=== PATIENT | male | born 1985 | race African-American/Black ===

== ENCOUNTER 2024-12-20 22:35 | Emergency (ER) | payer OTHER ==
[~2024-12-20] VITALS: Ht 167.6 cm; Wt 59.1 kg
[2024-12-20 22:47] VITALS: BP 96/60; PULSE 105; RESP 16; TEMP 98.6; O2SAT 99
[2024-12-20 23:03] LABS: COVID AG,FIA SOURCE NASAL SWAB
[2024-12-20 23:12] LABS: INFLUENZA TYPE A NEGATIVE FOR TYPE A (NEGATIVE); INFLUENZA TYPE B NEGATIVE FOR TYPE B (NEGATIVE)
[2024-12-20 23:15] LABS: SARS-COV2 (COVID) ANTIGEN,FIA Positive (Negative)
[2024-12-21] MEDS ORDERED: IBUP-1492 PO (00:18)
[2024-12-21] MEDS ORDERED: ACET-2247 PO (00:18)
[2024-12-21] MEDS ORDERED: NIRM1TAB10 PO (00:18)
[2024-12-21] MEDS ORDERED: ONDA-104 PO (00:18)
[2024-12-21] MEDS: ONDANSETRON 4 MG TABLET PO ONE (00:30)
[2024-12-21] MEDS: IBUPROFEN 600 MG TABLET PO ONE (00:30)
[2024-12-21] MEDS: ACETAMINOPHEN 325 MG TABLET PO ONE (00:30)
== END 2024-12-21 00:35 | disposition home or self-care (01) ==
LOC: EMS 22:37
DX: U07.1 COVID-19 (principal); R11.0 Nausea
CPT/HCPCS: 99284; 87426; 87804; Q0162